=== PATIENT | female | born 1955 | race Caucasian/White ===

== ENCOUNTER 2017-03-10 13:57 | Outpatient (CLI) | payer OTHER | END 2017-03-10 20:24 | disposition home or self-care (01) | LOC: SUS 13:57 | DX: M25.522 Pain in left elbow (principal); R22.32 Localized swelling, mass and lump, left upper limb ==

== ENCOUNTER 2017-04-24 11:06 | Outpatient (CLI) | payer OTHER | END 2017-04-24 19:48 | disposition home or self-care (01) | LOC: SMI 11:06 | DX: R22.31 Localized swelling, mass and lump, right upper limb (principal) | CPT/HCPCS: 73221 ==

== ENCOUNTER 2017-05-28 11:41 | Outpatient (CLI) | payer BC, OTHER | END 2017-05-28 20:46 | disposition home or self-care (01) | LOC: SMA 11:41 | DX: Z12.31 Encounter for screening mammogram for malignant neoplasm of breast (principal) | CPT/HCPCS: G0202 ==

== ENCOUNTER 2018-06-01 09:02 | Outpatient (CLI) | payer OTHER | END 2018-06-01 20:39 | disposition home or self-care (01) | LOC: SMA 09:02 | DX: Z12.31 Encounter for screening mammogram for malignant neoplasm of breast (principal) | CPT/HCPCS: 77067 ==

== ENCOUNTER 2019-06-07 10:11 | Outpatient (CLI) | payer OTHER | END 2019-06-07 20:58 | disposition home or self-care (01) | LOC: SMA 10:11 | DX: Z12.31 Encounter for screening mammogram for malignant neoplasm of breast (principal) | CPT/HCPCS: 77067 ==

== ENCOUNTER 2019-07-05 09:00 | Outpatient (CLI) | payer OTHER | END 2019-07-05 21:07 | disposition home or self-care (01) | LOC: SUS 09:00 | DX: R94.5 Abnormal results of liver function studies (principal); R10.9 Unspecified abdominal pain; Z90.49 Acquired absence of other specified parts of digestive tract | CPT/HCPCS: 76700-TC ==

== ENCOUNTER 2020-07-13 11:13 | Outpatient (CLI) | payer OTHER, MEDICARE | END 2020-07-13 20:23 | disposition home or self-care (01) | LOC: SMA 11:13 | DX: Z12.31 Encounter for screening mammogram for malignant neoplasm of breast (principal) | CPT/HCPCS: 77067 ==

== ENCOUNTER 2021-07-19 12:00 | Outpatient (CLI) | payer OTHER, MEDICARE | END 2021-07-19 19:53 | disposition home or self-care (01) | LOC: SMA 12:00 | PROVIDERS: ATTEND Specialist | DX: Z12.31 Encounter for screening mammogram for malignant neoplasm of breast (principal) | CPT/HCPCS: 77067 ==